=== PATIENT | female | born 1990 | race Caucasian/White ===

== ENCOUNTER 2019-02-07 00:35 | Emergency (ER) | payer SELFPAY ==
[2019-02-07] MEDS ORDERED: ALBU8.5H IH (00:51)
[2019-02-07 01:01] LABS: PLATELET COUNT, AUTOMATED 445 K/uL (150-450)
[2019-02-07] MEDS ORDERED: birth control PO (01:07)
--- NOTE | 2019-02-07 01:08 | ER Report ---
History and Physical Time Seen By MD: 00:55 HPI/ROS CHIEF COMPLAINT: Abdominal pain, shortness breath HISTORY OF PRESENT ILLNESS: 28-year-old female presents with pain that began approximately 2 hours ago while sitting and doing homework. Pain started in her mid back and radiated to her epigastrium. Pain radiates across bilateral abdomen as well as across the back at this point. Pain is sharp, severe, not fluctuating. She has never had this pain before. There are no clear exacerbating or relieving factors. Pain is associated with nausea, and sensation of shortness of breath. Patient has not had cough, URI symptoms, fever, chills. She has no diarrhea or constipation. She has no urinary changes. Last measured. Was greater than one month ago. She typically has menses every 3 months. She has no leg swelling or pain. She traveled recently on spring though was in car and not for long periods. There is no family history of DVT. She has had no abdominal surgeries before. She has no recent trauma. REVIEW OF SYSTEMS: Constitutional: No fever, no chills. Eyes: No discharge. ENT: No sore throat. Cardiovascular: No chest pain, no palpitations. Respiratory: above Gastrointestinal: above Genitourinary: No hematuria. Musculoskeletal: above Skin: No rashes. Neurological: No headache. Remainder of the 14 system rev: Yes Allergies: Coded Allergies: No Known Drug Allergies (Unverified , 02/07/19) Home Meds Reported Medications [ control] No Conflict Check, 1 TAB PO QDAY 02/07/19 Albuterol Sulfate 90 Mcg/Act (PROAIR HFA 90 MCG/ACT) 8.5 Gm Hfa.aer.ad, 2 PUFF IH Q2-4H PRN for SHORTNESS OF BREATH, INHALER 02/07/19 Reviewed Nurses Notes: Yes Constitutional Vital Sign - Last 24 Hours 02/07/19 00:41 Temp 97.8 Pulse 76 Resp 28 B/P (MAP) 121/77 Pulse Ox 99 O2 Delivery Room Air Physical Exam General Appearance: The patient is alert, has no immediate need for airway protection and no signs of toxicity. Eyes: Pupils equal and round no pallor or injection. ENT, Mouth: Mucous membranes are moist. Respiratory: There are no retractions, lungs are clear to auscultation. Cardiovascular: Regular rate and rhythm. no m/r/g Gastrointestinal: Patient has right upper quadrant tenderness with positive Mondragon sign. However, she has guarding and arrested inspiration throughout palpation of epigastrium and left upper quadrant. Patient states that right upper quadrant is most severe. There is no lower abdominal tenderness. Neurological: alert, oriented x 3 Skin: Warm and dry, no rashes. Musculoskeletal: Extremities are nontender, nonswollen and have full range of motion. DIFFERENTIAL DIAGNOSIS: After history and physical exam differential diagnosis was considered for abdominal pain including but not limited to appendicitis, cholecystitis, gastritis and urinary tract infection.shortness of breath including but not limited to pulmonary infectious process, asthma, pulmonary embolus and congestive heart failure. Medical Decision Making Data Points Result Diagram: 02/07/19 0045 02/07/19 0045 Laboratory Hematology Test 02/07/19 00:37 02/07/19 00:45 Urine Color Yellow Urine Clarity Slightly-cloudy Urine pH 6.0 pH (4.8-9.5) Urine Specific [place] 1.021 Urine Protein Negative mg/dL (NEGATIVE) Urine Glucose (UA) Negative mg/dL (NEGATIVE) Urine Ketones Negative mg/dL (NEGATIVE) Urine Blood Small (NEGATIVE) Urine Nitrite Negative (NEGATIVE) Urine Bilirubin Negative (NEGATIVE) Urine Urobilinogen Negative mg/dL (0.2-1.9) Urine Leukocyte Esterase Small (NEGATIVE) Urine RBC 5 /HPF (0-2/HPF) Urine WBC 13 /HPF (0-5/HPF) Urine Squamous Epithelial Cells Many /LPF (</=FEW) Urine Transitional Epithelial Cells Moderate /LPF (NONE-FEW) Urine Bacteria Few /HPF (NONE-FEW) Urine Mucus Few /HPF (NONE-FEW) Red Blood Count 4.71 M/uL (4.17-5.56) Mean Corpuscular Volume 90.5 fL (80.0-96.0) Mean Corpuscular Hemoglobin 31.0 pg (26.0-33.0) Mean Corpuscular Hemoglobin Concent 34.2 g/dL (32.0-36.0) Red Cell Distribution Width 12.3 % (11.5-14.5) Mean Platelet Volume 7.2 fL (7.2-11.1) Neutrophils (%) (Auto) 43.6 % (39.4-72.5) Lymphocytes (%) (Auto) 45.2 % (17.6-49.6) Monocytes (%) (Auto) 8.7 % (4.1-12.4) Eosinophils (%) (Auto) 1.5 % (0.4-6.7) Basophils (%) (Auto) 1.0 % (0.3-1.4) Nucleated RBC Relative Count (auto) 0.1 /100WBC Neutrophils # (Auto) 4.0 K/uL (2.0-7.4) Lymphocytes # (Auto) 4.1 K/uL (1.3-3.6) Monocytes # (Auto) 0.8 K/uL (0.3-1.0) Eosinophils # (Auto) 0.1 K/uL (0.0-0.5) Basophils # (Auto) 0.1 K/uL (0.0-0.1) Nucleated RBC Absolute Count (auto) 0.01 K/uL Sodium Level 140 mmol/L (137-145) Potassium Level 3.6 mmol/L (3.5-5.0) Chloride Level 102 mmol/L (98-107) Carbon Dioxide Level 26 mmol/L (22-31) Blood Urea Nitrogen 11 mg/dl (7-18) Creatinine 0.90 mg/dl (0.52-1.04) Glomerular Filtration Rate Calc > 60.0 Random Glucose 101 mg/dl (75-110) Calcium Level 9.6 mg/dl (8.4-10.2) Total Bilirubin < 0.1 mg/dl (0.2-1.3) Aspartate Amino Transf (AST/SGOT) 21 U/L (0-35) Alanine Aminotransferase (ALT/SGPT) 14 U/L (0-56) Alkaline Phosphatase 88 U/L (0-126) Total Protein 7.9 g/dl (6.3-8.2) Albumin 4.4 g/dl (3.5-5.0) Lipase 81 U/L (23-300) Human Chorionic Gonadotropin, Qual Negative (NEGATIVE) Chemistry Test 02/07/19 00:37 02/07/19 00:45 Urine Color Yellow Urine Clarity Slightly-cloudy Urine pH 6.0 pH (4.8-9.5) Urine Specific [place] 1.021 Urine Protein Negative mg/dL (NEGATIVE) Urine Glucose (UA) Negative mg/dL (NEGATIVE) Urine Ketones Negative mg/dL (NEGATIVE) Urine Blood Small (NEGATIVE) Urine Nitrite Negative (NEGATIVE) Urine Bilirubin Negative (NEGATIVE) Urine Urobilinogen Negative mg/dL (0.2-1.9) Urine Leukocyte Esterase Small (NEGATIVE) Urine RBC 5 /HPF (0-2/HPF) Urine WBC 13 /HPF (0-5/HPF) Urine Squamous Epithelial Cells Many /LPF (</=FEW) Urine Transitional Epithelial Cells Moderate /LPF (NONE-FEW) Urine Bacteria Few /HPF (NONE-FEW) Urine Mucus Few /HPF (NONE-FEW) White Blood Count 9.1 k/uL (4.5-11.0) Red Blood Count 4.71 M/uL (4.17-5.56) Hemoglobin 14.6 g/dL (12.0-16.0) Hematocrit 42.6 % (34.0-47.0) Mean Corpuscular Volume 90.5 fL (80.0-96.0) Mean Corpuscular Hemoglobin 31.0 pg (26.0-33.0) Mean Corpuscular Hemoglobin Concent 34.2 g/dL (32.0-36.0) Red Cell Distribution Width 12.3 % (11.5-14.5) Platelet Count 445 K/uL (150-450) Mean Platelet Volume 7.2 fL (7.2-11.1) Neutrophils (%) (Auto) 43.6 % (39.4-72.5) Lymphocytes (%) (Auto) 45.2 % (17.6-49.6) Monocytes (%) (Auto) 8.7 % (4.1-12.4) Eosinophils (%) (Auto) 1.5 % (0.4-6.7) Basophils (%) (Auto) 1.0 % (0.3-1.4) Nucleated RBC Relative Count (auto) 0.1 /100WBC Neutrophils # (Auto) 4.0 K/uL (2.0-7.4) Lymphocytes # (Auto) 4.1 K/uL (1.3-3.6) Monocytes # (Auto) 0.8 K/uL (0.3-1.0) Eosinophils # (Auto) 0.1 K/uL (0.0-0.5) Basophils # (Auto) 0.1 K/uL (0.0-0.1) Nucleated RBC Absolute Count (auto) 0.01 K/uL Glomerular Filtration Rate Calc > 60.0 Calcium Level 9.6 mg/dl (8.4-10.2) Total Bilirubin < 0.1 mg/dl (0.2-1.3) Aspartate Amino Transf (AST/SGOT) 21 U/L (0-35) Alanine Aminotransferase (ALT/SGPT) 14 U/L (0-56) Alkaline Phosphatase 88 U/L (0-126) Total Protein 7.9 g/dl (6.3-8.2) Albumin 4.4 g/dl (3.5-5.0) Lipase 81 U/L (23-300) Human Chorionic Gonadotropin, Qual Negative (NEGATIVE) Urinalysis Test 02/07/19 00:37 Urine Color Yellow Urine Clarity Slightly-cloudy Urine pH 6.0 pH (4.8-9.5) Urine Specific [place] 1.021 Urine Protein Negative mg/dL (NEGATIVE) Urine Glucose (UA) Negative mg/dL (NEGATIVE) Urine Ketones Negative mg/dL (NEGATIVE) Urine Blood Small (NEGATIVE) Urine Nitrite Negative (NEGATIVE) Urine Bilirubin Negative (NEGATIVE) Urine Urobilinogen Negative mg/dL (0.2-1.9) Urine Leukocyte Esterase Small (NEGATIVE) Urine RBC 5 /HPF (0-2/HPF) Urine WBC 13 /HPF (0-5/HPF) Urine Squamous Epithelial Cells Many /LPF (</=FEW) Urine Transitional Epithelial Cells Moderate /LPF (NONE-FEW) Urine Bacteria Few /HPF (NONE-FEW) Urine Mucus Few /HPF (NONE-FEW) ED Course/Re-evaluation ED Course 28-year-old female presents with pain radiating throughout abdomen and back, and sensation of dyspnea. ED evaluation generally unremarkable, however CT does show distended gallbladder and a calcified stone. It is possible that biliary colic is the source of her pain, as well as gastritis, or other early process that does not show up on CT her labs. Patient is significant improved and I talked with her about findings at length. We will offer surgeon follow-up, especially if she has further episodes. Patient understands strict return precautions to emergency department and will follow-up with primary care for further evaluati on. Decision to Disposition Date: Feb 07, 2019 Decision to Disposition Time: 02:51 Depart Departure Latest Vital Signs Vital Signs Date Time Temp Pulse Resp B/P (MAP) Pulse Ox O2 Delivery O2 Flow Rate FiO2 02/07/19 00:41 97.8 76 28 121/77 99 Room Air Impression: Primary Impression: Abdominal pain Additional Impression: Gallstone Condition: Improved Disposition: HOME OR SELF-CARE Referrals: [facility] 1 Week New Scripts Tramadol Hcl (TRAMADOL HCL) 50 Mg Tablet 50 MG PO Q6H PRN for PAIN, #12 TAB 0 Refills Prov: ANGELIC DOWNS MD 02/07/19 Patient Instructions: Biliary Colic (ED) Additional Instructions: As we discussed, while I do not clearly find the cause of your pain, your CT did show a distended gallbladder and a small stone. If you have any further episodes, I recommend you follow up with your surgeon for evaluation for need for removal of gallbladder. If you have severe concerning pain, vomiting and not tolerating fluids, fever or other concerns, please return to emergency department immediately. Problem Qualifiers Primary Impression: Abdominal pain Abdominal location: generalized Qualified Codes: R10.84 - Generalized abdominal pain Additional Impression: Gallstone Cholecystitis presence: without cholecystitis Biliary obstruction: without biliary obstruction Qualified Codes: K80.20 - Calculus of gallbladder without cholecystitis without obstruction ANGELIC DOWNS MD Feb 07, 2019 01:08
[2019-02-07] MEDS ORDERED: ONDANSETRON 4 MG/2 ML VIAL IVP ONE (01:20)
[2019-02-07] MEDS ORDERED: MAG HYD/AL HYD/SIMETH 30ML UDC PO ONE (01:20)
[2019-02-07] MEDS ORDERED: MORPHINE 4 MG/ML SDV IVP ONE (01:20)
[2019-02-07] MEDS ORDERED: LIDOCAINE 2% VISC SLN 15ML UDC PO ONE (01:20)
--- NOTE | 2019-02-07 01:47 | RADIOLOGY IMAGING REPORT ---
FACILITY: [facility] PATIENT NAME: Rhonda Chow : 1990 MR: [id number] V: [id number] EXAM DATE: ORDERING PHYSICIAN: ANGELIC DOWNS TECHNOLOGIST: Location: [facility] Patient: Rhonda Chow : 1990 Visit/Account:[id number] Date of Sevice: 02/07/2019 CHEST SINGLE AP COMPARISONS: None. ADDITIONAL PERTINENT HISTORY: Dyspnea with epigastric pain. FINDINGS: Cardiomediastinal silhouette: Negative. Pulmonary vasculature: Negative. Lung larios: Negative. Pleural spaces: Negative. Osseous structures: Negative. Surrounding soft tissues: Negative. IMPRESSION: No evidence of acute cardiopulmonary disease. Report Dictated By: Chad Gómez MD at 02/07/2019 1:42 AM Report E-Signed By: Chad Gómez MD at 02/07/2019 1:43 AM [id number]
[2019-02-07] MEDS ORDERED: IOPAMIDOL 76% 150 ML INFUS BTL 150 ML ONE (02:18)
--- NOTE | 2019-02-07 02:41 | RADIOLOGY IMAGING REPORT ---
FACILITY: [facility] PATIENT NAME: Rhonda Chow : 1990 MR: [id number] V: [id number] EXAM DATE: ORDERING PHYSICIAN: ANGELIC DOWNS TECHNOLOGIST: Location: [facility] Patient: Rhonda Chow : 1990 Visit/Account:[id number] Date of Sevice: 02/07/2019 CT ABDOMEN PELVIS W/ CON COMPARISONS: None. ADDITIONAL PERTINENT HISTORY: Right upper and right lower quadrant pain TECHNIQUE: Multiple axial images were obtained from the lung bases through the lesser trochanters bef ore and after the IV administration of IV contrast. One of the following dose optimization technique s was utilized in the performance of this exam: Automated exposure control; adjustment of the mA and/ or kV according to the patient's size; or use of an iterative reconstruction technique. Specific de tails can be referenced in the facility's radiology CT exam operational policy. CONTRAST: 75 ml of Isovue-370 FINDINGS: Lung bases: Negative. Free air and free fluid: None. Liver: Negative. Spleen: Negative. Kidneys, ureters and urinary bladder: Negative. Adrenal glands: Negative. Pancreas: Negative. Gallbladder: Small calcified gallstone within the gallbladder lumen. Gallbladder is mildly distended but otherwise normal. Bowel and mesentery: Negative including a normal-appearing appendix in the right lower quadrant.. Pelvic contents: Negative Lymph node assessment: Negative. Retroperitoneum: Negative. Abdominal vasculature: Negative. Surrounding soft tissues: Negative. Osseous structures: Negative. IMPRESSION: Normal CT of the abdomen and pelvis with contrast. Report Dictated By: Chad Gómez MD at 02/07/2019 2:33 AM Report E-Signed By: Chad Gómez MD at 02/07/2019 2:38 AM WSN:[id number]
[2019-02-07] MEDS ORDERED: TRAM-420 PO (02:54)
[2019-02-07 03:00] VITALS: BP 104/52
== END 2019-02-07 03:05 | disposition home or self-care (01) ==
LOC: ER 00:53
DX: R10.84 Generalized abdominal pain (principal); K80.20 Calculus of gallbladder without cholecystitis without obstruction
CPT/HCPCS: 71045; 74177; 81001; 83690; 84703; 85025; 96374; 96375; 99284; J2270; J2405; Q9967; 82040; 82247; 82310; 82374; 82435; 82565; 82947; 84075; 84132; 84155; 84295; 84450; 84460; 84520